=== PATIENT | male | born 2000 | race Two or more races ===

== ENCOUNTER 2024-06-12 21:19 | Emergency (ER) | payer MEDICAID, OTHER ==
[~2024-06-12] VITALS: Ht 175.3 cm; Wt 85.0 kg
[2024-06-12 22:47] LABS: Basophils # (auto) 0 10 ^3/uL (0-0.2); Basophils % (auto) 0.1 % (0.0-2.0); Eosinophils # (auto) 0 10 ^3/uL (0-0.8); Hematocrit 48.6 % (41.0-53.0); Hemoglobin 16.4 g/dL (13.5-17.5); Lymphocytes # (auto) 1.3 10 ^3/uL (0.4-5.4); Lymphocytes % (auto) 12.6 % (10.0-50.0); Mean Corpuscular Hgb Conc. 33.8 g/dL (32.0-36.0); Mean Corpuscular Volume 91.7 fL (80.0-100.0); Monocytes # (auto) 0.4 10 ^3/uL (0-1.3); Monocytes % (auto) 3.6 % (0.0-12.0); Neutrophils # (auto) 8.4 10 ^3/uL (1.6-8.6); Neutrophils % (auto) 83.7 % (37.0-80.0); Nucleated Red Blood Cells % 0.2 %; Platelet Count (auto) 148 10^3/uL (140-450); Red Cell Distribution Width 13.4 % (11.8-14.3)
[2024-06-12 22:51] LABS: Alanine Aminotransferase 25 U/L (7-40); Albumin 4.8 g/dL (3.2-4.8); Alkaline Phosphatase 70 U/L (46-116); Anion Gap 8 (5-15); Aspartate Aminotransferase 18 U/L (13-40); BUN/Creatinine Ratio 11.7 (10.0-20.0); Bilirubin, Total 0.4 mg/dL (0.2-1.0); Blood Alcohol 6.3 mg/dL (<10); Blood Urea Nitrogen 11 mg/dL (9-23); Calcium 10.3 mg/dL (8.7-10.4); Carbon Dioxide 25 mmol/L (20-31); Chloride 110 mmol/L (98-107); Glucose 136 mg/dL (74-106); Potassium 3.9 mmol/L (3.5-5.1); Sodium 143 mmol/L (136-145); Total Protein 8.1 g/dL (5.7-8.2)
[2024-06-13 00:45] VITALS: BP 105/73; PULSE 83; RESP 14; TEMP 98.8; O2SAT 100
[2024-06-13] MEDS: SODIUM CHLORIDE 0.9% 1,000 ML IV ONE (02:26)
[2024-06-13] MEDS: FAMOTIDINE (10MG/ML) 2ML VL IV ONE (02:34)
[2024-06-13] MEDS: ONDANSETRON HCL 4 MG/2 ML VIAL IV ONE (02:34)
[2024-06-13 03:26] LABS: Urine Bacteria None Seen /hpf (None Seen)
[2024-06-13 03:43] LABS: Urine Amorphous Crystal FEW /hpf (None Seen); Urine Blood Negative /uL (Negative); Urine Clarity Ex.Turbid (Clear); Urine Color Yellow (Yellow); Urine Protein, UAD TRACE (Negative); Urine Specific Gravity 1.023 (1.001-1.035); Urine Urobilinogen Normal (Negative); Urine WBC 18 /hpf (0 - 3)
[2024-06-13 03:49] LABS: Amphetamine Screen, Urine Neg (NEGATIVE); Benzodiazephine Screen, Urine Neg (NEGATIVE); Cannabinoid Screen, Urine Neg (NEGATIVE); Cocaine Screen, Urine Neg (NEGATIVE); Opiate Scree,Urine Neg (NEGATIVE); Phencyclidine Screen, Urine Neg (NEGATIVE)
[2024-06-13] MEDS ORDERED: CEPH500C PO (04:16)
[2024-06-13] MEDS ORDERED: ZOFR4T PO (04:16)
[2024-06-13 09:03] LABS: Barbiturate Scree,Urine Neg (NEGATIVE)
== END 2024-06-13 04:25 | disposition home or self-care (01) ==
LOC: ER 21:19 → EDBD 21:19 → ER 06-13 04:20
DX: N39.0 Urinary tract infection, site not specified (principal); R11.10 Vomiting, unspecified; Z98.890 Other specified postprocedural states
CPT/HCPCS: 36415; 70450; 71045; 80053; 80307; 80320; 81001; 83605; 84484; 85025; 96361; 96374; 96375; 99285; J2405; J3490; J7030; 93005